=== PATIENT | female | born 1950 | race Caucasian/White ===

== ENCOUNTER 2018-01-29 04:47 | Emergency (ER) | payer BC, MEDICARE ==
[2018-01-29 04:58] VITALS: BP 165/86
--- NOTE | 2018-01-29 05:12 | EDM.PDOC ---
ED HPI GENERAL MEDICAL PROBLEM - General Chief Complaint: ENT Problem Stated Complaint: FACIAL SWELLING AND MOUTH ISSUES Time Seen by Provider: 01/29/18 05:03 Source of Information: Reports: Patient History Limitations: Reports: No Limitations - History of Present Illness INITIAL COMMENTS - FREE TEXT/NARRATIVE: Patient presents with acute onset of facial swelling. She had been dealing with some canker sores and upper dental problems over the last week and was penetrated go to the dentist later today however she woke up and noted a lot of redness and warmth and tenderness to her face. She has persistent canker sores in the upper gumline as well. Denies any fevers chills or sweats. Does have a cough however does smoke cigarettes. No nausea vomiting no abdominal pain no diarrhea no burning pain or blood in the urine. Patient had a right elbow bursitis that has come down but she did have a lot of redness and swelling in that it is still persistent although improved after Epsom salt soaks and antibiotic ointment. Patient denies any immune dysfunction like diabetes hepatitis or HIV. Oral/Mouth Pain Score (Numeric/FACES): 5 - Related Data Allergies Allergy/AdvReac Type Severity Reaction Status Date / Time aspirin AdvReac Stomach Verified 01/29/18 04:55 Upset Home Meds: Home Meds Amoxicillin/Clavulanate K [Augmentin 500-125 MG] 1 tab PO Q8H #21 tab 01/29/18 [ Rx] Past Medical History HEENT History: Reports: Impaired Vision Other HEENT History: wears glasses Cardiovascular History: Reports: Hypertension Other Gastrointestinal History: biliary colic Musculoskeletal History: Reports: Fracture Dermatologic History: Reports: Cellulitis - Past Surgical History HEENT Surgical History: Reports: Tonsillectomy GI Surgical History: Reports: Appendectomy, Cholecystectomy Female Surgical History: Reports: Hysterectomy, Salpingo-Oophorectomy Social & Family History - Tobacco Use Smoking Status *Q: Current Every Day Smoker Years of Tobacco use: 50 Packs/Tins Daily: 1.5 - Alcohol Use Days Per Week of Alcohol Use: 5 Number of Drinks Per Day: 3 Total Drinks Per Week: 15 - Recreational Drug Use Recreational Drug Use: No ED ROS ENT - Review of Systems Review Of Systems: See Below Constitutional: Denies: Fever, Chills, Night Sweats, Diaphoresis Respiratory: Reports: Cough. Denies: Shortness of Breath Cardiovascular: Denies: Chest Pain, Palpitations GI/Abdominal: Denies: Abdominal Pain, Diarrhea, Nausea, Vomiting : Denies: Dysuria Musculoskeletal: Reports: Other (Right elbow pain and swelling and redness over the olecranon bursa) Skin: Reports: Rash (Well demarcated redness to the face that goes from the perioral area following to the forehead. Warm and tender) Neurological: Denies: Dizziness, Headache Psychiatric: Reports: No Symptoms ED EXAM, ENT - Physical Exam Exam: See Below Exam Limited By: No Limitations General Appearance: Alert, WD/WN, No Apparent Distress Eye Exam: Bilateral Eye: EOMI, PERRL Ears: Normal TMs Nose: Normal Inspection Mouth/Throat: Dental Abcess, Dental Pain, Dental Tenderness, Gum Swelling, Oral Ulcers, Other (Patient has an area what looks like a very periapical abscess that has spontaneously drained. It is around tooth #13. There is tenderness associated with it. She otherwise has some This stomatitis the upper gumline.). No: Drooling, Throat Pain, Tonsillar Erythema, Tonsillar Exudates, Uvular Deviation Neck: Supple. No: Lymphadenopathy (L), Lymphadenopathy (R) Respiratory/Chest: Lungs Clear, Normal Breath Sounds Cardiovascular: Regular Rate, Rhythm GI/Abdominal: Normal Bowel Sounds, Soft, Non-Tender Extremities: Other (Patient does have redness warmth and erythema to the olecranon on the right compared to the left. Range of motion of the elbow otherwise is normal.) Neurological: Alert, Oriented Psychiatric: Normal Affect, Normal Mood Skin: Warm, Dry, Erythema Course - Vital Signs Text/Narrative:: Patient has what looks like erysipelas suspected rabies from a dental source. No swallowing difficulty no trismus, no sublingual swelling. We'll treat with Unasyn, screen baseline labs, monitor here in the department but anticipate patient be able to go home on oral antibiotics and follow-up with a dentist. Last Recorded V/S: Last Vital Signs Temp 97.7 F 01/29/18 04:56 Pulse 96 01/29/18 04:56 Resp 18 01/29/18 04:56 BP 165/86 H 01/29/18 04:56 Pulse Ox 92 L 01/29/18 04:56 - Orders/Labs/Meds Orders: Active Orders 24 hr Category Date Time Status Peripheral IV Care [RC] . DIRECTED Care 01/29/18 05:17 Active Sodium Chloride 0.9% [Saline Flush] Med 01/29/18 05:17 Active 10 ml FLUSH ASDIRECTED PRN Peripheral IV Insertion Adult [OM.PC] Stat Oth 01/29/18 05:17 Ordered Medication Orders Sodium Chloride (Saline Flush) 10 ml FLUSH ASDIRECTED PRN PRN Reason: Keep Vein Open Last Admin: 01/29/18 05:36 Dose: 10 ml Labs: Laboratory Tests 01/29/18 01/29/18 Range/Units 05:20 05:20 WBC 7.89 (3.98-10.04) K/mm3 RBC 4.89 (3.98-5.22) M/mm3 Hgb 15.5 (11.2-15.7) gm/L Hct 44.5 (34.1-44.9) % MCV 91.0 (79.4-94.8) fl MCH 31.7 (25.6-32.2) pg MCHC 34.8 (32.2-35.5) g/dl RDW Std Deviation 40.4 (36.4-46.3) fL Plt Count 193 (182-369) K/mm3 MPV 10.4 (9.4-12.3) fl Neut % (Auto) 56.1 (34.0-71.1) % Lymph % (Auto) 32.7 (19.3-51.7) % [place] % (Auto) 6.6 (4.7-12.5) % Eos % (Auto) 3.9 (0.7-5.8) Baso % (Auto) 0.4 (0.1-1.2) % Neut # (Auto) 4.43 (1.56-6.13) K/mm3 Lymph # (Auto) 2.58 (1.18-3.74) K/mm3 [place] # (Auto) 0.52 H (0.24-0.36) K/mm3 Eos # (Auto) 0.31 (0.04-0.36) K/mm3 Baso # (Auto) 0.03 (0.01-0.08) K/mm3 Sodium 138 (136-145) mEq/L Potassium 3.9 (3.5-5.1) mEq/L Chloride 99 (98-107) mEq/L Carbon Dioxide 30 (21-32) mEq/L Anion Gap 12.9 (5-15) BUN 6 L (7-18) mg/dL Creatinine 0.8 (0.55-1.02) mg/dL Est Cr Clr Drug Dosing 52.90 mL/min Estimated GFR (MDRD) > 60 (>60) mL/min BUN/Creatinine Ratio 7.5 L (14-18) Glucose 262 H (80-115) mg/dL Calcium 9.0 (8.5-10.1) mg/dL Total Bilirubin 0.5 (0.2-1.0) mg/dL AST 25 (15-37) U/L ALT 41 (14-59) U/L Alkaline Phosphatase 152 H (46-116) U/L C-Reactive Protein < 0.2 (<1.0) mg/dL Total Protein 7.5 (6.4-8.2) g/dl Albumin 3.5 (3.4-5.0) g/dl Globulin 4.0 gm/dL Albumin/Globulin Ratio 0.9 L (1-2) Meds: Medications Generic Name Dose Route Start Last Admin Trade Name Freq PRN Reason Stop Dose Admin Sodium Chloride 10 ml 01/29/18 05:17 01/29/18 05:36 Saline Flush FLUSH 10 ml ASDIRECTED PRN Administration Keep Vein Open Discontinued Medications Generic Name Dose Route Start Last Admin Trade Name Freq PRN Reason Stop Dose Admin Ampicillin Sodium/Sulbactam 100 mls @ 200 mls/hr 01/29/18 05:17 01/29/18 05: 36 Sodium 3 gm/ Sodium Chloride IV 01/29/18 05:46 200 mls/hr ONETIME ONE Administration - Re-Assessments/Exams Free Text/Narrative Re-Assessment/Exam: 01/29/18 06:24 Clinically patient is doing much better. Blood sugars 262, CRP is negative, white blood cell count is normal. May be underlying reason for some of her infection problems will need to get her established with primary care for suspected underlying diagnosis of diabetes. Will treat patient as an outpatient using Augmentin 875 twice a day, follow-up with a dentist, follow-up with her primary care for diabetic screening/treatment. 01/29/18 06:24 Departure - Departure Time of Disposition: 06:31 Disposition: Home, Self-Care 01 Condition: Good Clinical Impression: Erysipelas, Hyperglycemia - Discharge Information Prescriptions: Amoxicillin/Clavulanate K [Augmentin 500-125 MG] 1 tab PO Q8H #21 tab Instructions: Preventing Type 2 Diabetes Mellitus, Antibiotic Medicine, Adult, Erysipelas Referrals: PCP,None [Primary Care Provider] - Forms: ED Department Discharge Additional Instructions: Monitor blood sugars and follow up with her primary care to rule out onset of diabetes, return here if fevers, increasing redness, pain, swelling, worse - My Orders Last 24 Hours: My Active Orders 01/29/18 05:17 Peripheral IV Care [RC] . DIRECTED Sodium Chloride 0.9% [Saline Flush] 10 ml FLUSH ASDIRECTED PRN Peripheral IV Insertion Adult [OM.PC] Stat - Assessment/Plan Last 24 Hours: My Active Orders 01/29/18 05:17 Peripheral IV Care [RC] . DIRECTED Sodium Chloride 0.9% [Saline Flush] 10 ml FLUSH ASDIRECTED PRN Peripheral IV Insertion Adult [OM.PC] Stat
[2018-01-29] MEDS ORDERED: Sodium Chloride 0.9% 10 ML Syringe FLUSH PRN (05:17)
[2018-01-29] MEDS ORDERED: Ampicillin/Sulbactam Na 3 GM in Sodium Chloride 0.9% 100 ML IV ONE (05:17)
== END 2018-01-29 06:45 | disposition home or self-care (01) ==
LOC: JD.ED 04:47
DX: A46 Erysipelas (principal); R73.9 Hyperglycemia, unspecified; K04.7 Periapical abscess without sinus; I10 Essential (primary) hypertension; F17.210 Nicotine dependence, cigarettes, uncomplicated; Z88.6 Allergy status to analgesic agent
CPT/HCPCS: 36415; 80053; 85025; 86140; 96365; 99283; J0295; J7030; J7050; 99284

== ENCOUNTER 2019-07-22 13:23 | Emergency (ER) | payer MEDICARE ==
[2019-07-22] MEDS ORDERED: Ondansetron 4 MG/2 ML SDV IVPUSH ONE (14:24)
[2019-07-22] MEDS ORDERED: Sodium Chloride 0.9% 10 ML Syringe FLUSH PRN (14:24)
[2019-07-22] MEDS ORDERED: Ketorolac 30 MG/ML SDV IVPUSH ONE (14:25)
[2019-07-22] MEDS ORDERED: HYDROmorphone 1 MG/ML Syringe IVPUSH ONE (14:25)
[2019-07-22] MEDS ORDERED: Sodium Chloride 0.9% 1,000 ML IV SCH (14:30)
--- NOTE | 2019-07-22 14:32 | EDM.PDOC ---
<Gina Moreno - Last Filed: 07/22/19 14:23> ED HPI GENERAL MEDICAL PROBLEM - General Chief Complaint: Gastrointestinal Problem Stated Complaint: VOMITING AND DIARRHEA Time Seen by Provider: 07/22/19 13:44 Source of Information: Reports: Patient History Limitations: Reports: No Limitations - History of Present Illness INITIAL COMMENTS - FREE TEXT/NARRATIVE: Patient is a pleasant 69-year-old female who presents to the ED with complaints of left lower quadrant pain, nausea, vomiting, and diarrhea. She states the pain in the left lower quadrant has been intermittent for the past month, however for the past 3-4 days it has been constant and is radiating into the left flank, left mid to lower back, and down her left leg. She describes the pain as a throbbing that is a constant 5-6/10 in severity, but will get spasms to the area that increases the pain to a 10/10. When the pain increases, she becomes nauseous. She has had episodes of diarrhea for the past four days. The stool has been watery and dark brown and since about 0300 the diarrhea has been constant. This morning she has also had three episodes of emesis that occurred when the pain intensified. She denies noting blood in the stool or emesis. She has never had pain like this in the past. She denies chest pain, shortness of breath, fever, and chills. Left Lower Abdomen Pain Score (Numeric/FACES): 10 - Related Data Allergies Allergy/AdvReac Type Severity Reaction Status Date / Time aspirin AdvReac Stomach Verified 07/22/19 13:43 Upset Home Meds: Home Meds Hydrocodone/Acetaminophen [Hydrocodon-Acetaminophen 5-325] 1 - 2 each PO Q6HR PRN #6 tablet 07/22/19 [Rx] Past Medical History HEENT History: Reports: Impaired Vision Other HEENT History: wears glasses Cardiovascular History: Reports: Hypertension Respiratory History: Reports: None Other Gastrointestinal History: biliary colic DIGITAL STRATEGIST History: Reports: None Musculoskeletal History: Reports: Fracture, Gout Neurological History: Reports: None Psychiatric History: Reports: None Endocrine/Metabolic History: Reports: Obesity/BMI 30+ Hematologic History: Reports: None Immunologic History: Reports: None Oncologic (Cancer) History: Reports: None Dermatologic History: Reports: Cellulitis - Infectious Disease History Infectious Disease History: Reports: None - Past Surgical History HEENT Surgical History: Reports: Tonsillectomy GI Surgical History: Reports: Appendectomy, Cholecystectomy Female Surgical History: Reports: Hysterectomy, Salpingo-Oophorectomy Social & Family History - Tobacco Use Smoking Status *Q: Current Every Day Smoker Years of Tobacco use: 45 Packs/Tins Daily: 0.7 - Caffeine Use Caffeine Use: Reports: Coffee - Recreational Drug Use Recreational Drug Use: No ED ROS GENERAL - Review of Systems Review Of Systems: See Below Constitutional: Reports: Decreased Appetite. Denies: Fever, Chills, Weakness, Fatigue HEENT: Reports: No Symptoms. Denies: Vertigo Respiratory: Reports: No Symptoms. Denies: Shortness of Breath, Cough Cardiovascular: Reports: No Symptoms. Denies: Chest Pain, Edema, Lightheadedness, Syncope GI/Abdominal: Reports: Abdominal Pain (left lower quadrant that radiates to left flank), Diarrhea, Decreased Appetite, Nausea, Vomiting. Denies: Black Stool, Bloody Stool, Melena : Reports: Flank Pain (left). Denies: Dysuria Musculoskeletal: Reports: Back Pain (left mid to lower back). Denies: Neck Pain , Muscle Pain Skin: Reports: Other (feels warm) Neurological: Reports: No Symptoms. Denies: Dizziness, Headache, Numbness, Syncope, Tingling, Weakness Psychiatric: Reports: No Symptoms Hematologic/Lymphatic: Reports: No Symptoms Immunologic: Reports: No Symptoms ED EXAM, GI/ABD - Physical Exam Exam: See Below Exam Limited By: No Limitations General Appearance: Alert, WD/WN, No Apparent Distress Throat/Mouth: Normal Inspection, Normal Lips, Normal Teeth, Normal Gums, Normal Oropharynx, Normal Voice, No Airway Compromise Head: Atraumatic, Normocephalic, Other (erythema noted to facial cheeks and forehead) Neck: Normal Inspection, Supple, Non-Tender, Full Range of Motion Respiratory/Chest: No Respiratory Distress, Lungs Clear, Normal Breath Sounds, No Accessory Muscle Use, Chest Non-Tender Cardiovascular: Normal Peripheral Pulses, Regular Rate, Rhythm, No Edema, No Gallop, No Murmur GI/Abdominal Exam: Normal Bowel Sounds, Soft, No Organomegaly, No Abnormal Bruit , No Mass, Distended, Tender (left lower quadrant and left flank with palpation) Back Exam: Normal Inspection, Full Range of Motion, CVA Tenderness (L). No: CVA Tenderness (R) Extremities: Normal Inspection, Normal Range of Motion, Non-Tender, No Pedal Edema, Normal Capillary Refill, Joint Swelling (left ankle- patient states this is chronic. ) Neurological: Alert, Oriented, Normal Cognition, Normal Gait, No Motor/Sensory Deficits Psychiatric: Normal Affect, Normal Mood Skin Exam: Warm, Dry, Intact, Normal Color, No Rash Lymphatic: No Adenopathy Course - Vital Signs Last Recorded V/S: Last Vital Signs Temp 98.2 F 07/22/19 13:40 Pulse 70 07/22/19 16:11 Resp 18 07/22/19 16:11 BP 99/53 L 07/22/19 16:11 Pulse Ox 99 07/22/19 16:11 - Orders/Labs/Meds Orders: Active Orders 24 hr Category Date Time Status Peripheral IV Care [RC] . DIRECTED Care 07/22/19 14:24 Active Sodium Chloride 0.9% [Normal Saline] 1,000 ml Med 07/22/19 14:30 Active IV ASDIRECTED Sodium Chloride 0.9% [Saline Flush] Med 07/22/19 14:24 Active 10 ml FLUSH ASDIRECTED PRN ED Antiemetic Medication Reflex [OM.PC] Stat Oth 07/22/19 14:24 Ordered Peripheral IV Insertion Adult [OM.PC] Stat Oth 07/22/19 14:24 Ordered Medication Orders Sodium Chloride (Normal Saline) 1,000 mls @ 125 mls/hr IV ASDIRECTED MANJU Last Admin: 07/22/19 15:13 Dose: 125 mls/hr Sodium Chloride (Saline Flush) 10 ml FLUSH ASDIRECTED PRN PRN Reason: Keep Vein Open Last Admin: 07/22/19 15:13 Dose: 10 ml Labs: Laboratory Tests 07/22/19 07/22/19 07/22/19 Range/Units 15:09 15:09 16:20 WBC 9.23 (3.98-10.04) K/mm3 RBC 5.25 H (3.98-5.22) M/mm3 Hgb 16.0 H (11.2-15.7) gm/dl Hct 45.9 H (34.1-44.9) % MCV 87.4 D (79.4-94.8) fl MCH 30.5 (25.6-32.2) pg MCHC 34.9 (32.2-35.5) g/dl RDW Std Deviation 39.9 (36.4-46.3) fL Plt Count 199 (182-369) K/mm3 MPV 10.3 (9.4-12.3) fl Neut % (Auto) 73.3 H (34.0-71.1) % Lymph % (Auto) 20.9 (19.3-51.7) % [place] % (Auto) 3.6 L (4.7-12.5) % Eos % (Auto) 1.8 (0.7-5.8) Baso % (Auto) 0.2 (0.1-1.2) % Neut # (Auto) 6.76 H (1.56-6.13) K/mm3 Lymph # (Auto) 1.93 (1.18-3.74) K/mm3 [place] # (Auto) 0.33 (0.24-0.36) K/mm3 Eos # (Auto) 0.17 (0.04-0.36) K/mm3 Baso # (Auto) 0.02 (0.01-0.08) K/mm3 Sodium 139 (136-145) mEq/L Potassium 3.8 (3.5-5.1) mEq/L Chloride 101 (98-107) mEq/L Carbon Dioxide 27 (21-32) mEq/L Anion Gap 14.8 (5-15) BUN 8 (7-18) mg/dL Creatinine 0.6 (0.55-1.02) mg/dL Est Cr Clr Drug Dosing 68.66 mL/min Estimated GFR (MDRD) > 60 (>60) mL/min BUN/Creatinine Ratio 13.3 L (14-18) Glucose 175 H (80-115) mg/dL Calcium 9.4 (8.5-10.1) mg/dL Total Bilirubin 0.8 (0.2-1.0) mg/dL AST 15 (15-37) U/L ALT 33 (14-59) U/L Alkaline Phosphatase 137 H (46-116) U/L Total Protein 7.7 (6.4-8.2) g/dl Albumin 3.8 (3.4-5.0) g/dl Globulin 3.9 gm/dL Albumin/Globulin Ratio 1.0 (1-2) Lipase 292 (73-393) U/L Urine Color Yellow (Yellow) Urine Appearance Slt cloudy H (Clear) Urine pH 6.5 (5.0-8.0) Ur Specific [place] 1.015 (1.005-1.030) Urine Protein Negative (Negative) Urine Glucose (UA) Negative (Negative) Urine Ketones Negative (Negative) Urine Occult Blood Negative (Negative) Urine Nitrite Negative (Negative) Urine Bilirubin Negative (Negative) Urine Urobilinogen 0.2 (0.2-1.0) Ur Leukocyte Esterase Negative (Negative) Urine RBC 0-5 (0-5) /hpf Urine WBC 0-5 (0-5) /hpf Ur Squamous Epith Cells 20-30 H (0-5) /hpf Urine Bacteria Few (FEW) /hpf Urine Mucus Few (FEW) /hpf Urine Yeast (Budding) Few H (NOT SEEN) Meds: Medications Generic Name Dose Route Start Last Admin Trade Name Frechip PRN Reason Stop Dose Admin Sodium Chloride 1,000 mls @ 125 mls/hr 07/22/19 14:30 07/22/19 15:13 Normal Saline IV 125 mls/hr ASDIRECTED MANJU Administration Sodium Chloride 10 ml 07/22/19 14:24 07/22/19 15:13 Saline Flush FLUSH 10 ml ASDIRECTED PRN Administration Keep Vein Open Discontinued Medications Generic Name Dose Route Start Last Admin Trade Name Thom PRN Reason Stop Dose Admin Hydromorphone HCl 1 mg 07/22/19 14:25 07/22/19 15:16 Dilaudid IVPUSH 07/22/19 14:26 1 mg ONETIME ONE Administration Ketorolac Tromethamine 30 mg 07/22/19 14:25 07/22/19 15:15 Toradol IVPUSH 07/22/19 14:26 30 mg ONETIME ONE Administration Ondansetron HCl 4 mg 07/22/19 14:24 07/22/19 15:12 Zofran IVPUSH 07/22/19 14:25 4 mg ONETIME ONE Administration Departure - Departure Disposition: Home, Self-Care 01 Clinical Impression: Left flank pain - Discharge Information Prescriptions: Hydrocodone/Acetaminophen [Hydrocodon-Acetaminophen 5-325] 1 - 2 each PO Q6HR PRN #6 tablet PRN Reason: Pain Referrals: PCP,None [Primary Care Provider] - Forms: ED Department Discharge Additional Instructions: Drink plenty of fluids. 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 This will need to be checked every 6 months to a year. Please return if you are worse. Sepsis Event Note - Evaluation Sepsis Screening Result: No Definite Risk - Focused Exam Vital Signs: Vital Signs Temp Pulse Resp BP Pulse Ox 07/22/19 16:11 70 18 99/53 L 99 07/22/19 13:40 98.2 F 84 18 138/81 95 Date Exam was Performed: 07/22/19 Time Exam was Performed: 14:23 - My Orders Last 24 Hours: My Active Orders 07/22/19 14:24 Peripheral IV Care [RC] . DIRECTED Sodium Chloride 0.9% [Saline Flush] 10 ml FLUSH ASDIRECTED PRN ED Antiemetic Medication Reflex [OM.PC] Stat Peripheral IV Insertion Adult [OM.PC] Stat 07/22/19 14:30 Sodium Chloride 0.9% [Normal Saline] 1,000 ml IV ASDIRECTED - Assessment/Plan Last 24 Hours: My Active Orders 07/22/19 14:24 Peripheral IV Care [RC] . DIRECTED Sodium Chloride 0.9% [Saline Flush] 10 ml FLUSH ASDIRECTED PRN ED Antiemetic Medication Reflex [OM.PC] Stat Peripheral IV Insertion Adult [OM.PC] Stat 07/22/19 14:30 Sodium Chloride 0.9% [Normal Saline] 1,000 ml IV ASDIRECTED <Mitch Juarez - Last Filed: 07/22/19 17:02> Course - Re-Assessments/Exams Free Text/Narrative Re-Assessment/Exam: 07/22/19 16:57 I examined the patient myself and I agree with Gina's assessment and plan. I have ordered an IV NS at 125mL/hr, labs, UA and a CT of her abdomen and pelvis. I also ordered dilaudid 1mg IV, toradol 30mg IV and zofran 4mg IV. Her CBC and CMP look good. Her UA shows no UTI. Her CT shows no renal calculi, ureteral dilatation or ureteral stone seen. 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 Nothing acute is identified on CT study of the abdomen and pelvis. She feels much better. I feel this is musculoskeletal. Departure - Departure Time of Disposition: 17:00 Condition: Good - Discharge Information *PRESCRIPTION DRUG MONITORING PROGRAM REVIEWED*: No *COPY OF PRESCRIPTION DRUG MONITORING REPORT IN PATIENT ANDREA: No Sepsis Event Note - Focused Exam Date Exam was Performed: 07/22/19 Time Exam was Performed: 16:57
--- NOTE | 2019-07-22 15:21 | CT ---
CT abdomen and pelvis Technique: Multiple axial sections were obtained from above the dome of the diaphragm inferiorly through the pubic symphysis. Intravenous and oral contrast not utilized. Study was performed as a ureteral stone protocol. Findings: No ureteral dilatation or ureteral stones are seen. Kidneys show no abnormal calcifications. Visualized lung bases show nothing acute. Noncontrast appearance of the liver shows no focal parenchymal abnormality. Spleen appears within normal limits. Adrenal glands show no nodule. Pancreas is within normal limits. Surgical clips are seen from prior cholecystectomy. Aorta shows atherosclerotic calcification. Mid aorta shows borderline aneurysmal dilatation at 2.5 cm. Atherosclerotic calcification continues into the iliac vessels. No retroperitoneal adenopathy is seen. No mesenteric abnormalities are noted. Mild haziness within the center of the mesentery is seen believed to be normal variant. No pelvic mass or adenopathy is seen. No free fluid is seen. No inflammatory change is identified. Appendix not definitely visualized. Bone window settings were reviewed which show severe disc space narrowing at L5-S1. Degenerative apophyseal change is noted at L3-L4 and L4-L5. Impression: 1. No renal calculi, ureteral dilatation or ureteral stone seen. 2. 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 3. Nothing acute is identified on CT study of the abdomen and pelvis performed as a ureteral stone protocol. Diagnostic code #3 This report was dictated in [place] Standard Time
[2019-07-22 18:00] VITALS: BP 103/51; PULSE 66
== END 2019-07-22 17:20 | disposition home or self-care (01) ==
LOC: JD.ED 13:23
DX: R10.32 Left lower quadrant pain (principal); I10 Essential (primary) hypertension; Z88.6 Allergy status to analgesic agent; F17.210 Nicotine dependence, cigarettes, uncomplicated; Z90.49 Acquired absence of other specified parts of digestive tract; Z90.710 Acquired absence of both cervix and uterus
CPT/HCPCS: 36415; 74176; 80053; 81001; 83690; 85025; 96361; 96374; 96375; 99284; J1170; J1885; J2405; J7030

== ENCOUNTER 2019-08-28 11:46 | Emergency (ER) | payer MEDICARE ==
[2019-08-28 11:58] VITALS: BP 162/86
--- NOTE | 2019-08-28 12:07 | EDM.PDOC ---
ED HPI GENERAL MEDICAL PROBLEM - General Chief Complaint: Abdominal Pain Stated Complaint: LT SIDE PAIN Time Seen by Provider: 08/28/19 12:03 - History of Present Illness INITIAL COMMENTS - FREE TEXT/NARRATIVE: 69-year-old female presents the emergency room with left-sided flank and abdominal pain. Patient states she is had this pain for over 2 months and is just not getting any better. She was seen here at the end of June for it had a CAT scan done which was unrevealing other than she has a borderline 2.5 cm abdominal aortic aneurysm. Laboratory evaluation was unrevealing. It sounds like at that point she was getting over a case of acute gastroenteritis and those symptoms have resolved now she is perhaps mildly constipated. She has significant discomfort in her lower rib area and in the adjacent abdominal musculature. Patient has not taken any medication. She does not like taking pills ibuprofen makes her sleepy. Left Lower Abdomen Pain Score (Numeric/FACES): 8 - Related Data Allergies Allergy/AdvReac Type Severity Reaction Status Date / Time aspirin AdvReac Stomach Verified 07/22/19 13:43 Upset Past Medical History HEENT History: Reports: Impaired Vision Other HEENT History: wears glasses Cardiovascular History: Reports: Hypertension Respiratory History: Reports: None Other Gastrointestinal History: biliary colic [employer]CRE[employer] WORK[employer] History: Reports: None Musculoskeletal History: Reports: Fracture, Gout Neurological History: Reports: None Psychiatric History: Reports: None Endocrine/Metabolic History: Reports: Obesity/BMI 30+ Hematologic History: Reports: None Immunologic History: Reports: None Oncologic (Cancer) History: Reports: None Dermatologic History: Reports: Cellulitis - Infectious Disease History Infectious Disease History: Reports: None - Past Surgical History HEENT Surgical History: Reports: Tonsillectomy GI Surgical History: Reports: Appendectomy, Cholecystectomy Female Surgical History: Reports: Hysterectomy, Salpingo-Oophorectomy Social & Family History - Caffeine Use Caffeine Use: Reports: Coffee ED ROS GENERAL - Review of Systems Review Of Systems: See Below Constitutional: Reports: No Symptoms HEENT: Reports: No Symptoms Respiratory: Reports: No Symptoms Cardiovascular: Reports: No Symptoms GI/Abdominal: Reports: Abdominal Pain, Constipation. Denies: Diarrhea, Nausea, Vomiting : Reports: No Symptoms. Denies: Dysuria, Flank Pain, Frequency, Urgency Musculoskeletal: Reports: Other (See HPI) Neurological: Reports: No Symptoms Psychiatric: Reports: No Symptoms ED EXAM, GI/ABD - Physical Exam Exam: See Below Exam Limited By: Altered Mental Status General Appearance: Alert, No Apparent Distress, Other (However if she moves the wrong way it sure hurts she seems to favor this left side and almost flexes laterally to make it feel better) Head: Atraumatic, Normocephalic Neck: Normal Inspection, Supple, Non-Tender, Full Range of Motion. No: Lymphadenopathy (L), Lymphadenopathy (R) Respiratory/Chest: No Respiratory Distress, Lungs Clear, Normal Breath Sounds Cardiovascular: Regular Rate, Rhythm, No Edema, No Murmur GI/Abdominal Exam: Normal Bowel Sounds, Soft, Other (She has pain along the lower ribs on the left side and the adjacent musculature. No other abdominal pain noted no rigidity rebound or guarding noted.) Back Exam: Normal Inspection, CVA Tenderness (L) (Mildly so). No: CVA Tenderness (R) Extremities: Other (She has mild edema in her left ankle she says this is chronic from a high school injury. ) Course - Vital Signs Last Recorded V/S: Last Vital Signs Temp 36.0 C L 08/28/19 11:54 Pulse 69 08/28/19 12:30 Resp 20 08/28/19 11:54 BP 162/86 H 08/28/19 11:54 Pulse Ox 94 L 08/28/19 12:30 - Orders/Labs/Meds Labs: Laboratory Tests 08/28/19 08/28/19 08/28/19 Range/Units 13:00 13:15 13:15 WBC 9.45 (3.98-10.04) K/mm3 RBC 4.76 (3.98-5.22) M/mm3 Hgb 14.5 D (11.2-15.7) gm/dl Hct 42.6 (34.1-44.9) % MCV 89.5 (79.4-94.8) fl MCH 30.5 (25.6-32.2) pg MCHC 34.0 (32.2-35.5) g/dl RDW Std Deviation 39.5 (36.4-46.3) fL Plt Count 192 (182-369) K/mm3 MPV 10.2 (9.4-12.3) fl Neut % (Auto) 51.9 (34.0-71.1) % Lymph % (Auto) 38.4 (19.3-51.7) % [place] % (Auto) 6.7 (4.7-12.5) % Eos % (Auto) 2.5 (0.7-5.8) Baso % (Auto) 0.4 (0.1-1.2) % Neut # (Auto) 4.90 (1.56-6.13) K/mm3 Lymph # (Auto) 3.63 (1.18-3.74) K/mm3 [place] # (Auto) 0.63 H (0.24-0.36) K/mm3 Eos # (Auto) 0.24 (0.04-0.36) K/mm3 Baso # (Auto) 0.04 (0.01-0.08) K/mm3 Sodium 141 (136-145) mEq/L Potassium 3.8 (3.5-5.1) mEq/L Chloride 106 (98-107) mEq/L Carbon Dioxide 29 (21-32) mEq/L Anion Gap 9.8 (5-15) BUN 7 (7-18) mg/dL Creatinine 0.6 (0.55-1.02) mg/dL Est Cr Clr Drug Dosing 68.66 mL/min Estimated GFR (MDRD) > 60 (>60) mL/min BUN/Creatinine Ratio 11.7 L (14-18) Glucose 141 H (80-115) mg/dL Calcium 9.5 (8.5-10.1) mg/dL Total Bilirubin 0.5 (0.2-1.0) mg/dL AST 15 (15-37) U/L ALT 27 (14-59) U/L Alkaline Phosphatase 122 H (46-116) U/L Total Protein 7.0 (6.4-8.2) g/dl Albumin 3.6 (3.4-5.0) g/dl Globulin 3.4 gm/dL Albumin/Globulin Ratio 1.1 (1-2) Lipase 117 (73-393) U/L Urine Color Light yellow (Yellow) Urine Appearance Clear (Clear) Urine pH 7.0 (5.0-8.0) Ur Specific [place] 1.010 (1.005-1.030) Urine Protein Negative (Negative) Urine Glucose (UA) Negative (Negative) Urine Ketones Negative (Negative) Urine Occult Blood Negative (Negative) Urine Nitrite Negative (Negative) Urine Bilirubin Negative (Negative) Urine Urobilinogen 0.2 (0.2-1.0) Ur Leukocyte Esterase Negative (Negative) Meds: Medications Discontinued Medications Generic Name Dose Route Start Last Admin Trade Name Thom PRN Reason Stop Dose Admin Acetaminophen 975 mg 08/28/19 12:54 08/28/19 13:03 Tylenol PO 08/28/19 12:55 975 mg NOW ONE Administration - Re-Assessments/Exams Free Text/Narrative Re-Assessment/Exam: 08/28/19 14:55 Labs reviewed unremarkable. I believe her pain is probably muscle wall strain with the abdominal wall musculature where it comes into the ribs there. I have recommended short course of muscle relaxants patient declined this the recommended Tylenol the patient is reluctant but may give this a try. The patient did receive 975 mg of Tylenol here and then she was able to sleep she has not had difficulty sleeping at night because of the pain. Now she is concerned that the Tylenol is causing sedation. Maybe she is just feeling better and getting caught up on not sleeping. I have strongly recommended Tylenol she is considering this. Departure - Departure Time of Disposition: 14:57 Disposition: Home, Self-Care 01 Clinical Impression: Strain of abdominal wall - Discharge Information Referrals: PCP,None [Primary Care Provider] - Forms: ED Department Discharge Additional Instructions: Return to the emergency room with any questions problems or worsening symptoms. Use Tylenol 1000 milligrams every 6 hours or 4 times a day until you are feeling better. For your aneurysm it is still quite small but needs to be monitored. Follow-up with the hospital clinic to establish [phone]. It would also be a good idea to follow-up with this abdominal wall pain to make sure this is improving. It is recommended you quit smoking. Sepsis Event Note - Evaluation Sepsis Screening Result: No Definite Risk - Focused Exam Vital Signs: Vital Signs Temp Pulse Pulse Resp BP Pulse Ox 08/28/19 12:30 69 94 L 08/28/19 12:15 71 98 08/28/19 11:54 36.0 C L 71 20 162/86 H 97 Date Exam was Performed: 08/28/19 Time Exam was Performed: 14:55
[2019-08-28] MEDS ORDERED: Acetaminophen 325 MG Tab PO ONE (12:54)
[2019-08-28 13:46] VITALS: PULSE 69
== END 2019-08-28 15:06 | disposition home or self-care (01) ==
LOC: JD.ED 11:46
DX: S39.011A Strain of muscle, fascia and tendon of abdomen, initial encounter (principal); I10 Essential (primary) hypertension; M10.9 Gout, unspecified; E66.9 Obesity, unspecified; Z68.32 Body mass index [BMI] 32.0-32.9, adult; Z88.8 Allergy status to other drugs, medicaments and biological substances; Z90.49 Acquired absence of other specified parts of digestive tract; Z90.710 Acquired absence of both cervix and uterus; X58.XXXA Exposure to other specified factors, initial encounter
CPT/HCPCS: 36415; 80053; 81003; 83690; 85025; 99284; A9270; 99283